=== PATIENT | female | born 1950 | race Caucasian/White ===

== ENCOUNTER 2022-11-17 09:45 | Emergency (ER) | payer MEDICARE, SELFPAY ==
[2022-11-17] VITALS (16 sets, daily range): BP systolic 110–148; BP diastolic 78–98; PULSE 74–95; RESP 13–21; TEMP 36.7; O2SAT 88–96; BMI 14.1
[2022-11-17 09:51] LABS: Glucometer 161 mg/dL (74-106)
--- NOTE | 2022-11-17 10:10 | ECG_ITS ---
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
--- NOTE | 2022-11-17 10:10 | XR_ITS ---
The [address] [address] Patient Name: DANY DE JESUS MRN: [id number] date: 1950 Sex: F Assigned Patient Location: ER Current Patient Location: ED.MAIN Accession/Order Number: [id number] Exam Date: 11/17/2022 10:40 Report Date: 11/17/2022 11:24 At the request of: KAREEM GOMEZ Procedure: XR chest 2V EXAM: XR chest 2V HISTORY: HYPOXIA COMPARISON: None. TECHNIQUE: PA and lateral views of the chest. FINDINGS: The cardiomediastinal silhouette is normal. Hyperlucent lungs and flattened diaphragm. Hiatal hernia. There is no pneumothorax. No pleural effusion is noted. The osseous structures are intact. XR/XR chest 2V IMPRESSION: Suggestion of COPD. Hiatal hernia. Electronically authenticated by: RAUL GREER Date: 11/17/2022 11:24
--- NOTE | 2022-11-17 10:25 | ED_ITS ---
HPI - Weakness General Chief complaint: Weakness Stated complaint: GENERAL WEAKNESS Time Seen by Provider: 11/17/22 09:49 Source: family and other Source comment: ems Mode of arrival: ambulance History of Present Illness HPI Narrative: 72-year-old female presents for weakness. She feels much better now. When paramedics picked her up they found her blood sugar to be fifty-eight. She was given IV insulin and feels much better now. She has not eaten today but she did eat yesterday. She is not a diabetic. No fever or vomiting and she feels essentially back to normal now. Related Data Allergies Allergy/AdvReac Type Severity Reaction Status Date / Time No Known Drug Allergies Allergy Verified 11/17/22 09:47 Review of Systems ROS Narrative A ten point review of systems is negative except as noted above. PFSH PFSH Social History Smoking status: Current every day smoker Exam Narrative Exam Narrative: Nurses note and vital signs reviewed and patient is not hypoxic. General: The patient appears well and in no apparent distress. Patient is resting comfortably on cart. Skin: Warm, dry, no pallor noted. There is no rash noted. Head: Normocephalic, atraumatic Eye: Normal conjunctiva, no drainage Ears, Nose, Mouth, and Throat: oral mucosa is moist. Nares patent. Cardiovascular: Regular Rate and Rhythm Respiratory: bilateral rhonchi present Back: non-tender. GI: nontender Musculoskeletal: The patient has no evidence of calf tenderness, no pitting edema, symmetrical pulses noted bilaterally Neurological: A&O, normal speech Psychiatric: Cooperative Constitutional Vital Signs, click to edit/add: Last Vital Signs Temp 98.0 F 11/17/22 09:47 Pulse 78 11/17/22 09:47 Resp 20 11/17/22 09:47 BP 148/98 H 11/17/22 09:47 Pulse Ox 88 L 11/17/22 10:19 O2 Del Method Room Air 11/17/22 10:19 O2 Flow Rate 2 11/17/22 10:19 Course Vital Signs Vital signs: Vital Signs Temperature 98.0 F 11/17/22 09:47 Pulse Rate 78 11/17/22 09:47 Respiratory Rate 20 11/17/22 09:47 Blood Pressure 148/98 H 11/17/22 09:47 Pulse Oximetry 91 L 11/17/22 09:47 Oxygen Delivery Method Room Air 11/17/22 09:47 Temperature 98.0 F 11/17/22 09:47 Pulse Rate 78 11/17/22 09:47 Respiratory Rate 20 11/17/22 09:47 Blood Pressure 148/98 H 11/17/22 09:47 Pulse Oximetry 88 L 11/17/22 10:19 Oxygen Delivery Method Room Air 11/17/22 10:19 Oxygen Delivery Flow Rate 2 11/17/22 10:19 MDM - Weakness MDM Narrative Medical decision making narrative: blood sugar on her chemistries was thirty-one. This was drawn by the paramedics when they placed her IV at her residence and subsequently she received IV gluco se and she ate a meal here. Blood sugar has normalized and she feels much better and she is able to be discharged home. Treatment diagnosis and follow-up were discussed with the patient. at the time of discharge she is asymptomatic. Differential Diagnosis Differential diagnosis: Likely hypoglycemia Lab Data Attestation: I reviewed the patient's lab results. Labs: Lab Results 11/17/22 11/17/22 Range/Units 09:50 09:55 WBC 8.6 (4.0-11.0) 10^3/uL RBC 4.74 (4.20-5.40) 10^6/uL Hgb 15.2 (12.0-16.0) g/dL Hct 48.8 H (36.0-48.0) % MCV 103.0 H (81.0-99.0) fL MCH 32.1 (26.7-34.0) pg MCHC 31.1 (29.9-35.2) g/dL RDW 14.0 (11.0-15.0) % Plt Count 406 (150-450) 10^3/uL MPV 9.6 (9.5-13.5) fL Neut % (Auto) 68.9 (43.0-75.0) % Lymph % (Auto) 22.9 (20.5-60.0) % Snyder % (Auto) 6.7 (1.7-12.0) % Eos % (Auto) 0.5 L (0.9-7.0) % Baso % (Auto) 0.8 (0.2-2.0) % Neut # (Auto) 5.9 (1.4-6.5) 10^3/uL Lymph # (Auto) 2.0 (1.2-3.8) 10^3/uL Snyder # (Auto) 0.6 (0.3-0.8) 10^3/uL Eos # (Auto) 0.0 (0.0-0.7) 10^3/uL Baso # (Auto) 0.1 (0.0-0.1) 10^3/uL Abs Immat Gran (auto) 0.02 (0.00-0.03) 10^3/uL Imm/Tot Granulo (auto) 0.2 (0.0-0.5) % Sodium 138 (136-145) mmol/L Potassium 3.8 (3.5-5.1) mmol/L Chloride 101 (98-107) mmol/L Carbon Dioxide 28.6 (21.0-32.0) mmol/L Anion Gap 12.2 BUN 20.0 H (7.0-18.0) mg/dL Creatinine 1.16 H (0.55-1.02) mg/dL Est GFR ( Amer) 55 L (>=60) Est GFR (Non-Af Amer) 46 L (>=60) BUN/Creatinine Ratio 17.2 Glucose 31 L* (74-106) mg/dL Calcium 8.6 (8.5-10.1) mg/dL Total Bilirubin 0.1 L (0.2-1.0) mg/dL AST 19 (15-37) U/L ALT 14 (14-59) U/L Alkaline Phosphatase 118 H (46-116) U/L Total Protein 8.3 H (6.4-8.2) g/dL Albumin 3.7 (3.4-5.0) g/dL Globulin 4.6 g/dL Albumin/Globulin Ratio 0.8 POC Glucose 161 H (74-106) mg/dL Discharge Plan Discharge Chief Complaint: Weakness Clinical Impression: Hypoglycemia Patient Disposition: Home, Self-Care Time of Disposition Decision: 11:22 Condition: Good Mode of Transportation: Private Vehicle Instructions: Non-diabetic Hypoglycemia (ED) Stand Alone Forms: Portal Instructions Referrals: Elieser Acharya MD [Primary Care Provider] - 1 week
[2022-11-17 10:38] LABS: Basophils Absolute Auto 0.1 10^3/uL (0.0-0.1); Basophils Percent Auto 0.8 % (0.2-2.0); Eosinophils Percent Auto 0.5 % (0.9-7.0); Hematocrit 48.8 % (36.0-48.0); Hemoglobin 15.2 g/dL (12.0-16.0); Immature Granulocytes Abs Auto 0.02 10^3/uL (0.00-0.03); Immature Granulocytes Pct Auto 0.2 % (0.0-0.5); Lymphocytes Percent Auto 22.9 % (20.5-60.0); Mean Corpuscular HGB Conc 31.1 g/dL (29.9-35.2); Mean Corpuscular Hemoglobin 32.1 pg (26.7-34.0); Mean Platelet Volume 9.6 fL (9.5-13.5); Monocytes Absolute Auto 0.6 10^3/uL (0.3-0.8); Monocytes Percent Auto 6.7 % (1.7-12.0); Neutrophils Absolute Auto 5.9 10^3/uL (1.4-6.5); Neutrophils Percent Auto 68.9 % (43.0-75.0); Platelet Count 406 10^3/uL (150-450); Red Blood Count 4.74 10^6/uL (4.20-5.40); White Blood Count 8.6 10^3/uL (4.0-11.0)
[2022-11-17 10:41] LABS: Alanine Aminotransferase 14 U/L (14-59); Albumin Globulin Ratio 0.8; Albumin Level 3.7 g/dL (3.4-5.0); Alkaline Phosphatase 118 U/L (46-116); Anion Gap 12.2; Aspartate Amino Transferase 19 U/L (15-37); BUN Creatinine Ratio 17.2; Bilirubin Total 0.1 mg/dL (0.2-1.0); Calcium 8.6 mg/dL (8.5-10.1); Carbon Dioxide 28.6 mmol/L (21.0-32.0); Chloride 101 mmol/L (98-107); Estimated GFR (African America 55 (>=60); Estimated GFR (Non-African Ame 46 (>=60); Globulin 4.6 g/dL; Potassium 3.8 mmol/L (3.5-5.1); Sodium 138 mmol/L (136-145); Total Protein 8.3 g/dL (6.4-8.2)
[2022-11-17 10:51] LABS: Glucose 31 mg/dL (74-106)
== END 2022-11-17 12:05 | disposition home or self-care (01) ==
PROVIDERS: Emergency Provider Emergency Medicine; PCP Family Medicine
DX: E16.2 Hypoglycemia, unspecified (principal); F17.210 Nicotine dependence, cigarettes, uncomplicated
CPT/HCPCS: 36415; 71046; 80053; 85025; 93005; 99285

== ENCOUNTER 2022-11-23 10:12 | Outpatient (OUT) | payer MEDICARE, SELFPAY ==
[2022-11-23 10:24] LABS: Basophils Percent Auto 0.5 % (0.2-2.0); Eosinophils Absolute Auto 0.1 10^3/uL (0.0-0.7); Eosinophils Percent Auto 1.5 % (0.9-7.0); Hematocrit 44.4 % (36.0-48.0); Hemoglobin 13.8 g/dL (12.0-16.0); Immature Granulocytes Abs Auto 0.02 10^3/uL (0.00-0.03); Immature Granulocytes Pct Auto 0.3 % (0.0-0.5); Lymphocytes Percent Auto 27.2 % (20.5-60.0); Mean Corpuscular HGB Conc 31.1 g/dL (29.9-35.2); Mean Corpuscular Hemoglobin 32.3 pg (26.7-34.0); Mean Platelet Volume 8.8 fL (9.5-13.5); Monocytes Absolute Auto 0.6 10^3/uL (0.3-0.8); Monocytes Percent Auto 8.3 % (1.7-12.0); Neutrophils Absolute Auto 4.6 10^3/uL (1.4-6.5); Neutrophils Percent Auto 62.2 % (43.0-75.0); Platelet Count 287 10^3/uL (150-450); Red Blood Count 4.27 10^6/uL (4.20-5.40); Red Cell Distribution Width 14.2 % (11.0-15.0); White Blood Count 7.4 10^3/uL (4.0-11.0)
[2022-11-23 10:54] LABS: Alanine Aminotransferase 11 U/L (14-59); Albumin Globulin Ratio 0.8; Alkaline Phosphatase 96 U/L (46-116); Anion Gap 9.9; Aspartate Amino Transferase 16 U/L (15-37); BUN Creatinine Ratio 16.5; Bilirubin Total 0.2 mg/dL (0.2-1.0); Calcium 8.6 mg/dL (8.5-10.1); Carbon Dioxide 31.5 mmol/L (21.0-32.0); Chloride 103 mmol/L (98-107); Chol HDL Ratio 2.8; Cholesterol 171 mg/dL (<=200); Estimated GFR (African America >60 (>=60); Estimated GFR (Non-African Ame >60 (>=60); Glucose 89 mg/dL (74-106); HDL Cholesterol 61 mg/dL (40-60); Potassium 5.4 mmol/L (3.5-5.1); Sodium 139 mmol/L (136-145); Triglycerides 171 mg/dL (<=150); VLDL CHOLESTEROL 34.2 mg/dL
== END 2022-11-23 10:13 | disposition home or self-care (01) ==
LOC: LAB 10:12
PROVIDERS: PCP Family Medicine; Visit Provider Nurse Practitioner Acute Care
DX: E78.2 Mixed hyperlipidemia (principal); I50.22 Chronic systolic (congestive) heart failure
CPT/HCPCS: 36415; 80053; 80061; 85025

== ENCOUNTER 2022-11-26 11:58 | Emergency (ER) | payer MEDICARE, SELFPAY ==
[2022-11-26] VITALS (8 sets, daily range): BP systolic 125–151; BP diastolic 73–88; PULSE 76–92; RESP 16–26; TEMP 36.6; O2SAT 90–92; BMI 14.1
[2022-11-26 12:15] LABS: Glucometer 74 mg/dL (74-106)
[2022-11-26 12:53] LABS: Basophils Percent Auto 0.5 % (0.2-2.0); Eosinophils Absolute Auto 0.1 10^3/uL (0.0-0.7); Eosinophils Percent Auto 1.1 % (0.9-7.0); Hematocrit 45.9 % (36.0-48.0); Hemoglobin 13.9 g/dL (12.0-16.0); Immature Granulocytes Abs Auto 0.02 10^3/uL (0.00-0.03); Immature Granulocytes Pct Auto 0.3 % (0.0-0.5); Lymphocytes Absolute Auto 1.4 10^3/uL (1.2-3.8); Lymphocytes Percent Auto 18.7 % (20.5-60.0); Mean Corpuscular HGB Conc 30.3 g/dL (29.9-35.2); Mean Platelet Volume 8.9 fL (9.5-13.5); Monocytes Absolute Auto 0.7 10^3/uL (0.3-0.8); Monocytes Percent Auto 9.4 % (1.7-12.0); Neutrophils Absolute Auto 5.1 10^3/uL (1.4-6.5); Platelet Count 298 10^3/uL (150-450); Red Blood Count 4.34 10^6/uL (4.20-5.40); Red Cell Distribution Width 14.4 % (11.0-15.0); White Blood Count 7.3 10^3/uL (4.0-11.0)
[2022-11-26 12:57] LABS: Mean Corpuscular Volume 105.8 fL (81.0-99.0)
[2022-11-26 13:09] LABS: Alanine Aminotransferase 11 U/L (14-59); Albumin Globulin Ratio 0.8; Albumin Level 3.3 g/dL (3.4-5.0); Alkaline Phosphatase 100 U/L (46-116); Anion Gap 8.4; Aspartate Amino Transferase 19 U/L (15-37); BUN Creatinine Ratio 15.6; Bilirubin Total 0.1 mg/dL (0.2-1.0); Calcium 8.4 mg/dL (8.5-10.1); Carbon Dioxide 31.1 mmol/L (21.0-32.0); Chloride 97 mmol/L (98-107); Estimated GFR (African America >60 (>=60); Estimated GFR (Non-African Ame 57 (>=60); Globulin 4.3 g/dL; Potassium 4.5 mmol/L (3.5-5.1); Sodium 132 mmol/L (136-145); Total Protein 7.6 g/dL (6.4-8.2)
[2022-11-26 13:11] LABS: Glucose 47 mg/dL (74-106)
--- NOTE | 2022-11-26 13:18 | CT_ITS ---
The [address] [address] Patient Name: DANY DE JESUS MRN: [id number] date: 1950 Sex: F Assigned Patient Location: ER Current Patient Location: ER Accession/Order Number: [id number] Exam Date: 11/26/2022 13:45 Report Date: 11/26/2022 15:03 At the request of: MAGDI ACUNA Procedure: CT abdomen pelvis wo con EXAM: CT abdomen pelvis wo con HISTORY: Hypoglycemia. COMPARISON: 09/28/2016. TECHNIQUE: Unenhanced helical acquisition obtained through the abdomen and the pelvis. Dose reduction techniques were achieved by using automated exposure control and/or adjustment of mA and/or kV according to patient size and/or use of iterative reconstruction technique. FINDINGS: Cardiomegaly. Moderate coronary arterial calcifications. Fairly marked gastric distention with large hiatal hernia filled with fluid and debris. Associated compressive atelectasis noted involving the bilateral lower lobes, right greater than left. The pleural spaces are clear. Prior cholecystectomy. Biliary ductal dilatation with the common bile duct maximally measuring 1.9 cm in diameter. Allowing for the lack of intravenous contrast, the liver, spleen, pancreas, and the adrenal glands are unremarkable. Prominent bilateral extrarenal pelves. No renal or ureteral calculi are identified. Severe diffuse atherosclerotic disease. Infrarenal abdominal aortic aneurysm measuring approximately 3 cm AP diameter, previously measuring 2.6 cm. No enlarged lymph nodes identified within the abdomen or the pelvis. Diverticulosis without radiographic evidence of diverticulitis. Gas and fluid filled mildly distended small bowel. Fairly extensive stool present within the colon. Prior appendectomy and prior hysterectomy. Diffuse demineralization. CT/CT abdomen pelvis wo con IMPRESSION: 1. There is marked gastric distention with fluid and debris within the gastric lumen. Large hiatal hernia resulting in compressive atelectasis at the lung bases. Possibility of gastroparesis should be considered. Mechanical outlet obstruction is considered less likely given prominent mildly distended small bowel loops throughout the abdomen. 2. Fairly extensive stool burden within the colon. Diverticulosis without radiographic evidence diverticulitis. 3. Cardiomegaly. Moderate coronary arterial calcifications. 4. Prior cholecystectomy. Extrahepatic biliary ductal dilatation with the common bile duct measuring 1.9 cm in diameter. Recommend correlation with LFTs. 5. A 3 cm infrarenal abdominal aortic aneurysm, mildly increased in size. Electronically authenticated by: MANPREET CRAIG Date: 11/26/2022 15:03
[2022-11-26] MEDS: DEXTROSE 50 %-WATER 25 GM/50 ML SYRINGE IV (13:23)
[2022-11-26 14:11] LABS: Glucometer 78 mg/dL (74-106)
[2022-11-26] MEDS: DEXTROSE 10 % IN WATER 1,000 ML 150 ML IV (14:57)
[2022-11-26 17:10] LABS: Glucometer 89 mg/dL (74-106)
[2022-11-26] MEDS: HYDROCODONE/ACET 10-325 MG TABLET 1 TAB PO (18:14)
--- NOTE | 2022-11-26 18:23 | ED_ITS ---
HPI - General Adult General Chief complaint: Recheck/Abnormal Lab/Rx Stated complaint: LOW SUGAR Time Seen by Provider: 11/26/22 12:05 Source: patient Mode of arrival: Wheelchair Limitations: no limitations History of Present Illness HPI narrative: The patient have no history of diabetes coming to the ER with hypoglycemia after this morning she mentioned that she was feeling tremors and felt shaky and her measured her blood sugar and it was found to be 25 the patient also had another blood sugar , the patient mentioned that she had similar presentation almost 9 days ago to the ER when she was supposed to follow-up with her primary care doctor The patient denies any abdominal pain nausea vomiting or any other concerns Related Data Home Medications Medication Instructions Recorded Confirmed albuterol sulfate 90 mcg/actuation 2 puff inhalation Q4H PRN 11/26/22 11/26/22 aerosol inhaler bronchospasm atorvastatin 40 mg tablet 40 mg PO DAILY 11/26/22 11/26/22 cyclobenzaprine 5 mg tablet 5 mg PO Q8H PRN muscle spasm 11/26/22 11/26/22 furosemide 20 mg tablet 20 mg PO .daily mon, wed, mon11/26/22 11/26/22 furosemide 40 mg tablet 40 mg PO .COMPLEX 11/26/22 11/26/22 hydrocodone 10 mg-acetaminophen 1 tab PO Q4H PRN pain 11/26/22 11/26/22 325 mg tablet omeprazole 40 mg capsule,delayed 40 mg PO BID 11/26/22 11/26/22 release potassium chloride 20 mEq 20 meq PO .q am 11/26/22 11/26/22 tablet,extended release(part/cryst) sacubitril 24 mg-valsartan 26 mg 1 tab PO BID 11/26/22 11/26/22 tablet (Entresto) Allergies Allergy/AdvReac Type Severity Reaction Status Date / Time No Known Drug Allergies Allergy Verified 11/17/22 09:47 Review of Systems ROS Status of ROS 10 or more systems reviewed and unremarkable except as noted in history and below [facility] Social History Smoking status: Current every day smoker Exam Narrative Exam Narrative: Nurses notes and vital signs reviewed and patient is not hypoxic. General: Well-appearing and in no apparent distress. Skin: Warm, dry, no pallor noted. No rash. Head: Normocephalic, atraumatic. Neck: Supple, non-tender. Eye: Pupils are equal, round and EOMI. No scleral icterus. Ears, Nose, Mouth, and Throat: TM are clear, no nasal mucosal hypertrophy. Oral mucosa is moist, no posterior oropharynx erythema, uvula is mid-line Cardiovascular: Regular Rate and Rhythm without murmur, gallop or rub. Respiratory: No accessory muscle use or respiratory distress. Lungs are clear to auscultation, no wheezing, rales or rhonchi Chest Wall: no tenderness Back: No midline thoracic or lumbar vertebral tenderness. No CVA tenderness Musculoskeletal: normal ROM, no calf or popliteal tenderness, no lower extremity edema/swelling GI: Abdomen is soft, non-distended. Normal bowel sounds. No masses appreciated. No tenderness to palpation. No rebound, guarding, or rigidity noted. Neurological: A&O x4. No cranial nerve dysfunction observed. No truncal ataxia. Moves all extremities. Sensation intact. Psychiatric: Cooperative and interactive. Normal mood and affect. Constitutional Vital Signs, click to edit/add: Last Vital Signs Temp 97.8 F 11/26/22 12:05 Pulse 89 11/26/22 17:23 Resp 18 11/26/22 17:23 BP 125/74 11/26/22 17:23 Pulse Ox 90 L 11/26/22 17:23 O2 Del Method Room Air 11/26/22 17:23 Course Vital Signs Vital signs: Vital Signs Temperature 97.8 F 11/26/22 12:05 Pulse Rate 76 11/26/22 12:05 Respiratory Rate 24 11/26/22 12:05 Blood Pressure 151/73 H 11/26/22 12:05 Temperature 97.8 F 11/26/22 12:05 Pulse Rate 89 11/26/22 17:23 Respiratory Rate 18 11/26/22 17:23 Blood Pressure 125/74 11/26/22 17:23 Pulse Oximetry 90 L 11/26/22 17:23 Oxygen Delivery Method Room Air 11/26/22 17:23 Medical Decision Making MDM Narrative Medical decision making narrative: The patient does have a history of chronic back pain but no history of diabetes and her hypoglycemia that was recurring it was not explained The patient blood sugar dropped to 25 at home she had some juice and when she came to us it was initially 70 but when the blood work-up was taken it was 45 and she was provided with almost multiple p.o. juices as well as 50 % dextrose and yet I only reached 70s I did get a CAT scan of the abdomen of the patient that was not showing any significant pathology but it was without contrast and possible obstruction according to the result mentioned above is not ruled out CBC and chemistry showed no acute significant pathology Initially was the plan to admitted the patient to our facility but we do not have any specialty including endocrinology that would help diagnosing the patient hypoglycemia especially that she is not diabetic The patient initially was reluctant that she did not want to go to [facility] but I called Jerry as well as Miko Quijano and both of them does not have any nike athlete The patient case was discussed with the [facility] and Dr. Olsen agree to accept the patient the patient was on 150 cc of 10% dextrose right now as continuous infusion Lab Data Labs: Lab Results 11/26/22 11/26/22 11/26/22 Range/Units 12:04 12:37 14:10 WBC 7.3 (4.0-11.0) 10^3/uL RBC 4.34 (4.20-5.40) 10^6/uL Hgb 13.9 (12.0-16.0) g/dL Hct 45.9 (36.0-48.0) % MCV 105.8 H (81.0-99.0) fL MCH 32.0 (26.7-34.0) pg MCHC 30.3 (29.9-35.2) g/dL RDW 14.4 (11.0-15.0) % Plt Count 298 (150-450) 10^3/uL MPV 8.9 L (9.5-13.5) fL Neut % (Auto) 70.0 (43.0-75.0) % Lymph % (Auto) 18.7 L (20.5-60.0) % Laurens % (Auto) 9.4 (1.7-12.0) % Eos % (Auto) 1.1 (0.9-7.0) % Baso % (Auto) 0.5 (0.2-2.0) % Neut # (Auto) 5.1 (1.4-6.5) 10^3/uL Lymph # (Auto) 1.4 (1.2-3.8) 10^3/uL [place] # (Auto) 0.7 (0.3-0.8) 10^3/uL Eos # (Auto) 0.1 (0.0-0.7) 10^3/uL Baso # (Auto) 0.0 (0.0-0.1) 10^3/uL Abs Immat Gran (auto) 0.02 (0.00-0.03) 10^3/uL Imm/Tot Granulo (auto) 0.3 (0.0-0.5) % Sodium 132 L (136-145) mmol/L Potassium 4.5 (3.5-5.1) mmol/L Chloride 97 L (98-107) mmol/L Carbon Dioxide 31.1 (21.0-32.0) mmol/L Anion Gap 8.4 BUN 15.0 (7.0-18.0) mg/dL Creatinine 0.96 (0.55-1.02) mg/dL Est GFR ( Amer) >60 (>=60) Est GFR (Non-Af Amer) 57 L (>=60) BUN/Creatinine Ratio 15.6 Glucose 47 L* (74-106) mg/dL Calcium 8.4 L (8.5-10.1) mg/dL Total Bilirubin 0.1 L (0.2-1.0) mg/dL AST 19 (15-37) U/L ALT 11 L (14-59) U/L Alkaline Phosphatase 100 (46-116) U/L Total Protein 7.6 (6.4-8.2) g/dL Albumin 3.3 L (3.4-5.0) g/dL Globulin 4.3 g/dL Albumin/Globulin Ratio 0.8 POC Glucose 74 78 (74-106) mg/dL 11/26/22 Range/Units 17:07 WBC (4.0-11.0) 10^3/uL RBC (4.20-5.40) 10^6/uL Hgb (12.0-16.0) g/dL Hct (36.0-48.0) % MCV (81.0-99.0) fL MCH (26.7-34.0) pg MCHC (29.9-35.2) g/dL RDW (11.0-15.0) % Plt Count (150-450) 10^3/uL MPV (9.5-13.5) fL Neut % (Auto) (43.0-75.0) % Lymph % (Auto) (20.5-60.0) % Laurens % (Auto) (1.7-12.0) % Eos % (Auto) (0.9-7.0) % Baso % (Auto) (0.2-2.0) % Neut # (Auto) (1.4-6.5) 10^3/uL Lymph # (Auto) (1.2-3.8) 10^3/uL Laurens # (Auto) (0.3-0.8) 10^3/uL Eos # (Auto) (0.0-0.7) 10^3/uL Baso # (Auto) (0.0-0.1) 10^3/uL Abs Immat Gran (auto) (0.00-0.03) 10^3/uL Imm/Tot Granulo (auto) (0.0-0.5) % Sodium (136-145) mmol/L Potassium (3.5-5.1) mmol/L Chloride (98-107) mmol/L Carbon Dioxide (21.0-32.0) mmol/L Anion Gap BUN (7.0-18.0) mg/dL Creatinine (0.55-1.02) mg/dL Est GFR ( Amer) (>=60) Est GFR (Non-Af Amer) (>=60) BUN/Creatinine Ratio Glucose (74-106) mg/dL Calcium (8.5-10.1) mg/dL Total Bilirubin (0.2-1.0) mg/dL AST (15-37) U/L ALT (14-59) U/L Alkaline Phosphatase (46-116) U/L Total Protein (6.4-8.2) g/dL Albumin (3.4-5.0) g/dL Globulin g/dL Albumin/Globulin Ratio POC Glucose 89 (74-106) mg/dL Discharge Plan Discharge Chief Complaint: Recheck/Abnormal Lab/Rx Clinical Impression: Hypoglycemia without diagnosis of diabetes mellitus Patient Disposition: [facility] Time of Disposition Decision: 18:28 Discharge Location: [facility] Condition: Good Mode of Transportation: EMS
[2022-11-26 18:56] LABS: Glucometer 112 mg/dL (74-106)
== END 2022-11-26 19:15 | disposition short-term general hospital (02) ==
PROVIDERS: Emergency Provider Emergency Medicine; PCP Family Medicine
DX: E16.2 Hypoglycemia, unspecified (principal); Z79.899 Other long term (current) drug therapy; F17.210 Nicotine dependence, cigarettes, uncomplicated
CPT/HCPCS: 36415; 36416; 74176; 80053; 82948; 85025; 99285

== ENCOUNTER 2022-12-09 03:18 | Observation (INO) | payer MEDICARE, SELFPAY ==
[2022-12-09] VITALS (46 sets, daily range): BP systolic 95–141; BP diastolic 51–78; PULSE 64–101; RESP 12–34; TEMP 36.7–36.8; O2SAT 90–100; BMI 15.1
[2022-12-09 03:28] LABS: Glucometer 31 mg/dL (74-106)
[2022-12-09 03:28] LABS: Glucometer 31 mg/dL (74-106)
--- NOTE | 2022-12-09 03:30 | XR_ITS ---
The [address] [address] Patient Name: DANY DE JESUS MRN: [id number] date: 1950 Sex: F Assigned Patient Location: ER Current Patient Location: ER Accession/Order Number: [id number] Exam Date: 12/09/2022 03:38 Report Date: 12/09/2022 03:55 At the request of: KAL ANDERSON Procedure: XR chest 1V EXAM: XR chest 1V HISTORY: weakness COMPARISON: Chest radiographs dated 11/17/2022. TECHNIQUE: One view of the chest was obtained. FINDINGS: The cardiac silhouette is stable in size. There is a very large hiatal hernia containing air and fluid. Aortic atherosclerotic disease is seen. There is left basilar atelectasis. There is no significant pneumothorax or right pleural effusion. There is a small left pleural effusion. No acute osseous abnormality is seen. XR/XR chest 1V IMPRESSION: 1. Very large hiatal hernia with left basilar atelectasis and a possible small left pleural effusion. Electronically authenticated by: Ya HENRY Date: 12/09/2022 03:55
--- NOTE | 2022-12-09 03:30 | ECG_ITS ---
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
--- NOTE | 2022-12-09 03:31 | ED_ITS ---
HPI - Weakness General Chief complaint: Weakness Stated complaint: SOB Time Seen by Provider: 12/09/22 03:27 Source: patient Mode of arrival: ambulance History of Present Illness HPI Narrative: patient with recent visits to the hospital for hypoglycemia of unknown etiology. Was transferred to [facility]. Patient states nothing was done. Brought here tonight by [employer] for weakness and feeling dizzy. POC BS 30. No nausea or vomiting or pain. Denies taking insulin and she is not diabetic MD Complaint: Reports generalized weakness Related Data Home Medications Medication Instructions Recorded Confirmed albuterol sulfate 90 mcg/actuation 2 puff inhalation Q4H PRN 11/26/22 12/09/22 aerosol inhaler bronchospasm atorvastatin 40 mg tablet 40 mg PO DAILY 11/26/22 12/09/22 cyclobenzaprine 5 mg tablet 5 mg PO Q8H PRN muscle spasm 11/26/22 12/09/22 furosemide 20 mg tablet 20 mg PO .daily mon, wed, fri 11/26/22 11/26/22 furosemide 40 mg tablet 40 mg PO .COMPLEX 11/26/22 12/09/22 hydrocodone 10 mg-acetaminophen 1 tab PO Q4H PRN pain 11/26/22 12/09/22 325 mg tablet omeprazole 40 mg capsule,delayed 40 mg PO BID 11/26/22 12/09/22 release potassium chloride 20 mEq 20 meq PO .q am 11/26/22 12/09/22 tablet,extended release(part/cryst) sacubitril 24 mg-valsartan 26 mg 1 tab PO BID 11/26/22 11/26/22 tablet (Entresto) blood sugar diagnostic (Accu-Chek 12/09/22 12/09/22 Guide test strips) blood-glucose meter (Accu-Chek 12/09/22 12/09/22 Guide Glucose Meter) hydrocodone 5 mg-acetaminophen 325 tab 12/09/22 mg tablet Allergies Allergy/AdvReac Type Severity Reaction Status Date / Time No Known Drug Allergies Allergy Verified 12/09/22 03:22 Review of Systems ROS Status of ROS 10 or more systems reviewed and unremarkable except as noted in history and below PFSH PFSH Social History Smoking status: Current every day smoker Exam Constitutional Vital Signs, click to edit/add: Last Vital Signs Temp 98.0 F 12/09/22 03:19 Pulse 69 12/09/22 06:20 Resp 15 12/09/22 06:20 BP 99/53 12/09/22 06:00 Pulse Ox 90 L 12/09/22 06:20 Common normals: no apparent distress, oriented x3 and alert Eye Common normals: EOMs intact bilaterally and conjunctivae normal Chest Common normals: inspection of chest normal Respiratory Common normals: normal respiratory effort, no retractions, no use of accessory muscles and clear to auscultation bilaterally Cardio Common normals: regular rate, regular rhythm, S1 normal heart sound and S2 normal heart sound GI Common normals: Normal to inspection, nondistended, normoactive bowel sounds present, soft to palpation and non-tender Extremity Common normals: normal to inspection and full ROM Neuro Common normals: oriented x3, CN's II-XII intact bilaterally, moves all extremities, no focal motor deficits and no sensory deficits noted Psych Appearance: grossly normal Course Vital Signs Vital signs: Vital Signs Temperature 98.0 F 12/09/22 03:19 Pulse Rate 67 12/09/22 03:19 Respiratory Rate 16 12/09/22 03:19 Blood Pressure 141/78 12/09/22 03:19 Pulse Oximetry 98 12/09/22 03:19 Temperature 98.0 F 12/09/22 03:19 Pulse Rate 69 12/09/22 06:20 Respiratory Rate 15 12/09/22 06:20 Blood Pressure 99/53 12/09/22 06:00 Pulse Oximetry 90 L 12/09/22 06:20 MDM - Weakness MDM Narrative Medical decision making narrative: patient presents with hypoglycemia. Patient is not diabetic and does not take insulin. POC BS on arrival 31. Lab returned with RBS 23. Patient treated with D50 and food and her BS increased. BS rechecked again and it went down again. Discussed with [facility] and patient accepted in transfer. her UA is nitrite positive. Given dose of keflex for possible UTI. Care transferred to Dr Singh pending transfer Lab Data Labs: Lab Results 12/09/22 12/09/22 12/09/22 Range/Units 03:20 03:24 03:26 WBC 9.5 (4.0-11.0) 10^3/uL RBC 4.02 L (4.20-5.40) 10^6/uL Hgb 13.0 (12.0-16.0) g/dL Hct 41.9 (36.0-48.0) % MCV 104.2 H (81.0-99.0) fL MCH 32.3 (26.7-34.0) pg MCHC 31.0 (29.9-35.2) g/dL RDW 14.8 (11.0-15.0) % Plt Count 436 (150-450) 10^3/uL MPV 8.6 L (9.5-13.5) fL Neut % (Auto) 67.4 (43.0-75.0) % Lymph % (Auto) 19.7 L (20.5-60.0) % [place] % (Auto) 11.9 (1.7-12.0) % Eos % (Auto) 0.3 L (0.9-7.0) % Baso % (Auto) 0.4 (0.2-2.0) % Neut # (Auto) 6.4 (1.4-6.5) 10^3/uL Lymph # (Auto) 1.9 (1.2-3.8) 10^3/uL [place] # (Auto) 1.1 H (0.3-0.8) 10^3/uL Eos # (Auto) 0.0 (0.0-0.7) 10^3/uL Baso # (Auto) 0.0 (0.0-0.1) 10^3/uL Abs Immat Gran (auto) 0.03 (0.00-0.03) 10^3/uL Imm/Tot Granulo (auto) 0.3 (0.0-0.5) % Sodium 130 L (136-145) mmol/L Potassium 4.3 (3.5-5.1) mmol/L Chloride 96 L (98-107) mmol/L Carbon Dioxide 29.3 (21.0-32.0) mmol/L Anion Gap 9.0 BUN 23.0 H (7.0-18.0) mg/dL Creatinine 1.30 H (0.55-1.02) mg/dL Est GFR ( Amer) 48 L (>=60) Est GFR (Non-Af Amer) 40 L (>=60) BUN/Creatinine Ratio 17.7 Glucose 23 L* (74-106) mg/dL Calcium 8.2 L (8.5-10.1) mg/dL Total Bilirubin 0.2 (0.2-1.0) mg/dL AST 16 (15-37) U/L ALT 9 L (14-59) U/L Alkaline Phosphatase 81 (46-116) U/L Troponin I High Sens 19.9 (4.0-51.3) pg/mL Total Protein 6.8 (6.4-8.2) g/dL Albumin 3.1 L (3.4-5.0) g/dL Globulin 3.7 g/dL Albumin/Globulin Ratio 0.8 Urine Color (YELLOW) Urine Clarity (CLEAR) Urine pH (5.0-9.0) Ur Specific [place] (1.005-1.025) Urine Protein (NEG/TRACE) mg/dL Urine Glucose (UA) (NEGATIVE) mg/dL Urine Ketones (NEGATIVE) mg/dL Urine Occult Blood (NEGATIVE) Urine Nitrite (NEGATIVE) Urine Bilirubin (NEGATIVE) Urine Urobilinogen (0.2-1.0) EU/dL Ur Leukocyte Esterase (NEGATIVE) Urine RBC (0-2) #/HPF Urine WBC (NONE SEEN) #/HPF Ur Squamous Epith Cells (NONE/RARE) #/LPF Urine Crystals (None Seen) #/HPF Urine Bacteria (NONE SEEN) #/HPF Urine Casts (NONE SEEN) #/LPF Urine Mucus (NONE SEEN) Ur Culture Indicated? POC Glucose 31 L* 31 L* (74-106) mg/dL 12/09/22 12/09/22 12/09/22 Range/Units 03:56 03:58 04:46 WBC (4.0-11.0) 10^3/uL RBC (4.20-5.40) 10^6/uL Hgb (12.0-16.0) g/dL Hct (36.0-48.0) % MCV (81.0-99.0) fL MCH (26.7-34.0) pg MCHC (29.9-35.2) g/dL RDW (11.0-15.0) % Plt Count (150-450) 10^3/uL MPV (9.5-13.5) fL Neut % (Auto) (43.0-75.0) % Lymph % (Auto) (20.5-60.0) % [place] % (Auto) (1.7-12.0) % Eos % (Auto) (0.9-7.0) % Baso % (Auto) (0.2-2.0) % Neut # (Auto) (1.4-6.5) 10^3/uL Lymph # (Auto) (1.2-3.8) 10^3/uL [place] # (Auto) (0.3-0.8) 10^3/uL Eos # (Auto) (0.0-0.7) 10^3/uL Baso # (Auto) (0.0-0.1) 10^3/uL Abs Immat Gran (auto) (0.00-0.03) 10^3/uL Imm/Tot Granulo (auto) (0.0-0.5) % Sodium (136-145) mmol/L Potassium (3.5-5.1) mmol/L Chloride (98-107) mmol/L Carbon Dioxide (21.0-32.0) mmol/L Anion Gap BUN (7.0-18.0) mg/dL Creatinine (0.55-1.02) mg/dL Est GFR ( Amer) (>=60) Est GFR (Non-Af Amer) (>=60) BUN/Creatinine Ratio Glucose (74-106) mg/dL Calcium (8.5-10.1) mg/dL Total Bilirubin (0.2-1.0) mg/dL AST (15-37) U/L ALT (14-59) U/L Alkaline Phosphatase (46-116) U/L Troponin I High Sens (4.0-51.3) pg/mL Total Protein (6.4-8.2) g/dL Albumin (3.4-5.0) g/dL Globulin g/dL Albumin/Globulin Ratio Urine Color (YELLOW) Urine Clarity (CLEAR) Urine pH (5.0-9.0) Ur Specific [place] (1.005-1.025) Urine Protein (NEG/TRACE) mg/dL Urine Glucose (UA) (NEGATIVE) mg/dL Urine Ketones (NEGATIVE) mg/dL Urine Occult Blood (NEGATIVE) Urine Nitrite (NEGATIVE) Urine Bilirubin (NEGATIVE) Urine Urobilinogen (0.2-1.0) EU/dL Ur Leukocyte Esterase (NEGATIVE) Urine RBC (0-2) #/HPF Urine WBC (NONE SEEN) #/HPF Ur Squamous Epith Cells (NONE/RARE) #/LPF Urine Crystals (None Seen) #/HPF Urine Bacteria (NONE SEEN) #/HPF Urine Casts (NONE SEEN) #/LPF Urine Mucus (NONE SEEN) Ur Culture Indicated? POC Glucose 166 H 158 H 73 L (74-106) mg/dL 12/09/22 12/09/22 12/09/22 Range/Units 05:00 05:51 05:53 WBC (4.0-11.0) 10^3/uL RBC (4.20-5.40) 10^6/uL Hgb (12.0-16.0) g/dL Hct (36.0-48.0) % MCV (81.0-99.0) fL MCH (26.7-34.0) pg MCHC (29.9-35.2) g/dL RDW (11.0-15.0) % Plt Count (150-450) 10^3/uL MPV (9.5-13.5) fL Neut % (Auto) (43.0-75.0) % Lymph % (Auto) (20.5-60.0) % [place] % (Auto) (1.7-12.0) % Eos % (Auto) (0.9-7.0) % Baso % (Auto) (0.2-2.0) % Neut # (Auto) (1.4-6.5) 10^3/uL Lymph # (Auto) (1.2-3.8) 10^3/uL [place] # (Auto) (0.3-0.8) 10^3/uL Eos # (Auto) (0.0-0.7) 10^3/uL Baso # (Auto) (0.0-0.1) 10^3/uL Abs Immat Gran (auto) (0.00-0.03) 10^3/uL Imm/Tot Granulo (auto) (0.0-0.5) % Sodium (136-145) mmol/L Potassium (3.5-5.1) mmol/L Chloride (98-107) mmol/L Carbon Dioxide (21.0-32.0) mmol/L Anion Gap BUN (7.0-18.0) mg/dL Creatinine (0.55-1.02) mg/dL Est GFR ( Amer) (>=60) Est GFR (Non-Af Amer) (>=60) BUN/Creatinine Ratio Glucose (74-106) mg/dL Calcium (8.5-10.1) mg/dL Total Bilirubin (0.2-1.0) mg/dL AST (15-37) U/L ALT (14-59) U/L Alkaline Phosphatase (46-116) U/L Troponin I High Sens (4.0-51.3) pg/mL Total Protein (6.4-8.2) g/dL Albumin (3.4-5.0) g/dL Globulin g/dL Albumin/Globulin Ratio Urine Color Lt. yellow (YELLOW) Urine Clarity Clear (CLEAR) Urine pH 5.5 (5.0-9.0) Ur Specific [place] <=1.005 A (1.005-1.025) Urine Protein Negative (NEG/TRACE) mg/dL Urine Glucose (UA) 100 A (NEGATIVE) mg/dL Urine Ketones Negative (NEGATIVE) mg/dL Urine Occult Blood Negative (NEGATIVE) Urine Nitrite Positive A (NEGATIVE) Urine Bilirubin Negative (NEGATIVE) Urine Urobilinogen 0.2 (0.2-1.0) EU/dL Ur Leukocyte Esterase Negative (NEGATIVE) Urine RBC 0-2 (0-2) #/HPF Urine WBC None seen (NONE SEEN) #/HPF Ur Squamous Epith Cells Few A (NONE/RARE) #/LPF Urine Crystals None seen (None Seen) #/HPF Urine Bacteria Large A (NONE SEEN) #/HPF Urine Casts None seen (NONE SEEN) #/LPF Urine Mucus None seen (NONE SEEN) Ur Culture Indicated? Yes POC Glucose 358 H 58 L (74-106) mg/dL 12/09/22 12/09/22 Range/Units 06:42 06:43 WBC (4.0-11.0) 10^3/uL RBC (4.20-5.40) 10^6/uL Hgb (12.0-16.0) g/dL Hct (36.0-48.0) % MCV (81.0-99.0) fL MCH (26.7-34.0) pg MCHC (29.9-35.2) g/dL RDW (11.0-15.0) % Plt Count (150-450) 10^3/uL MPV (9.5-13.5) fL Neut % (Auto) (43.0-75.0) % Lymph % (Auto) (20.5-60.0) % [place] % (Auto) (1.7-12.0) % Eos % (Auto) (0.9-7.0) % Baso % (Auto) (0.2-2.0) % Neut # (Auto) (1.4-6.5) 10^3/uL Lymph # (Auto) (1.2-3.8) 10^3/uL [place] # (Auto) (0.3-0.8) 10^3/uL Eos # (Auto) (0.0-0.7) 10^3/uL Baso # (Auto) (0.0-0.1) 10^3/uL Abs Immat Gran (auto) (0.00-0.03) 10^3/uL Imm/Tot Granulo (auto) (0.0-0.5) % Sodium (136-145) mmol/L Potassium (3.5-5.1) mmol/L Chloride (98-107) mmol/L Carbon Dioxide (21.0-32.0) mmol/L Anion Gap BUN (7.0-18.0) mg/dL Creatinine (0.55-1.02) mg/dL Est GFR ( Amer) (>=60) Est GFR (Non-Af Amer) (>=60) BUN/Creatinine Ratio Glucose (74-106) mg/dL Calcium (8.5-10.1) mg/dL Total Bilirubin (0.2-1.0) mg/dL AST (15-37) U/L ALT (14-59) U/L Alkaline Phosphatase (46-116) U/L Troponin I High Sens (4.0-51.3) pg/mL Total Protein (6.4-8.2) g/dL Albumin (3.4-5.0) g/dL Globulin g/dL Albumin/Globulin Ratio Urine Color (YELLOW) Urine Clarity (CLEAR) Urine pH (5.0-9.0) Ur Specific [place] (1.005-1.025) Urine Protein (NEG/TRACE) mg/dL Urine Glucose (UA) (NEGATIVE) mg/dL Urine Ketones (NEGATIVE) mg/dL Urine Occult Blood (NEGATIVE) Urine Nitrite (NEGATIVE) Urine Bilirubin (NEGATIVE) Urine Urobilinogen (0.2-1.0) EU/dL Ur Leukocyte Esterase (NEGATIVE) Urine RBC (0-2) #/HPF Urine WBC (NONE SEEN) #/HPF Ur Squamous Epith Cells (NONE/RARE) #/LPF Urine Crystals (None Seen) #/HPF Urine Bacteria (NONE SEEN) #/HPF Urine Casts (NONE SEEN) #/LPF Urine Mucus (NONE SEEN) Ur Culture Indicated? POC Glucose 153 H 81 (74-106) mg/dL Discharge Plan Discharge Chief Complaint: Weakness Clinical Impression: Hypoglycemia, Acute UTI (urinary tract infection) Patient Disposition: [facility] Discharge Location: [facility]
[2022-12-09] MEDS: DEXTROSE 50 %-WATER 25 GM/50 ML SYRINGE IV (03:35)
[2022-12-09 03:38] LABS: Basophils Percent Auto 0.4 % (0.2-2.0); Eosinophils Percent Auto 0.3 % (0.9-7.0); Hematocrit 41.9 % (36.0-48.0); Immature Granulocytes Abs Auto 0.03 10^3/uL (0.00-0.03); Immature Granulocytes Pct Auto 0.3 % (0.0-0.5); Lymphocytes Absolute Auto 1.9 10^3/uL (1.2-3.8); Lymphocytes Percent Auto 19.7 % (20.5-60.0); Mean Corpuscular Hemoglobin 32.3 pg (26.7-34.0); Mean Corpuscular Volume 104.2 fL (81.0-99.0); Mean Platelet Volume 8.6 fL (9.5-13.5); Monocytes Absolute Auto 1.1 10^3/uL (0.3-0.8); Monocytes Percent Auto 11.9 % (1.7-12.0); Neutrophils Absolute Auto 6.4 10^3/uL (1.4-6.5); Neutrophils Percent Auto 67.4 % (43.0-75.0); Platelet Count 436 10^3/uL (150-450); Red Blood Count 4.02 10^6/uL (4.20-5.40); Red Cell Distribution Width 14.8 % (11.0-15.0); White Blood Count 9.5 10^3/uL (4.0-11.0)
[2022-12-09 03:47] LABS: Alanine Aminotransferase 9 U/L (14-59); Albumin Globulin Ratio 0.8; Albumin Level 3.1 g/dL (3.4-5.0); Alkaline Phosphatase 81 U/L (46-116); Aspartate Amino Transferase 16 U/L (15-37); BUN Creatinine Ratio 17.7; Bilirubin Total 0.2 mg/dL (0.2-1.0); Calcium 8.2 mg/dL (8.5-10.1); Carbon Dioxide 29.3 mmol/L (21.0-32.0); Chloride 96 mmol/L (98-107); Estimated GFR (African America 48 (>=60); Estimated GFR (Non-African Ame 40 (>=60); Globulin 3.7 g/dL; Potassium 4.3 mmol/L (3.5-5.1); Sodium 130 mmol/L (136-145); Total Protein 6.8 g/dL (6.4-8.2)
[2022-12-09 03:49] LABS: Troponin I High Sensitivity 19.9 pg/mL (4.0-51.3)
--- NOTE | 2022-12-09 03:49 | PC.NURSE ---
Pt presents to ER via EMS for hypoglycemia Pt states her called EMS because she wasn't acting like herself Pt states she has been seen a few times for hypoglycemia but she is not a diabetic Pt states she was just recently discharged from [place] where she was seen by endocrinology A phonecall was made to [facility] to get records about her stay Pt is a poor historian On arrival her blood glucose was 31 Pt was given one amp of D50 and an orange juice Pt placed on industrial retrofit designer as well
[2022-12-09 03:57] LABS: Glucometer 166 mg/dL (74-106)
[2022-12-09 03:59] LABS: Glucometer 158 mg/dL (74-106)
[2022-12-09 04:09] LABS: Glucose 23 mg/dL (74-106)
[2022-12-09 04:47] LABS: Glucometer 73 mg/dL (74-106)
[2022-12-09 05:10] LABS: Bilirubin Urine NEGATIVE (NEGATIVE); Blood Urine NEGATIVE (NEGATIVE); Clarity Urine CLEAR (CLEAR); Color Urine LT. YELLOW (YELLOW); Glucose Urine UA 100 mg/dL (NEGATIVE); Ketones Urine NEGATIVE (NEGATIVE); Leukocyte Esterase Urine NEGATIVE (NEGATIVE); Nitrite Urine POSITIVE (NEGATIVE); Protein Urine NEGATIVE (NEG/TRACE); Specific Gravity Urine <=1.005 (1.005-1.025); Urobilinogen Urine 0.2 EU/dL (0.2-1.0); pH Urine 5.5 (5.0-9.0)
[2022-12-09 05:11] LABS: Urine Microscopic Indicated YES
[2022-12-09 05:20] LABS: Bacteria Urine LARGE #/HPF (NONE SEEN); Cast Seen? NONE SEEN #/LPF (NONE SEEN); Crystals Seen? None Seen #/HPF (None Seen); Mucus Urine NONE SEEN (NONE SEEN); RBC Urine 0-2 #/HPF (0-2); Squamous Epithelial Cell Urine FEW #/LPF (NONE/RARE); Urine Culture Indicated YES; WBC Urine NONE SEEN #/HPF (NONE SEEN)
[2022-12-09 05:53] LABS: Glucometer 358 mg/dL (74-106)
[2022-12-09 05:54] LABS: Glucometer 58 mg/dL (74-106)
[2022-12-09 06:43] LABS: Glucometer 153 mg/dL (74-106)
[2022-12-09 06:44] LABS: Glucometer 81 mg/dL (74-106)
[2022-12-09] MEDS: CEPHALEXIN 500 MG CAPSULE 1000 MG PO (07:06)
[2022-12-09 07:17] LABS: Glucose 54 mg/dL (74-106)
[2022-12-09] MEDS: DEXTROSE 10 % IN WATER 1,000 ML 120 ML IV (07:24)
[2022-12-09 08:50] LABS: Glucometer 217 mg/dL (74-106)
[2022-12-09 09:41] LABS: Glucometer 125 mg/dL (74-106)
[2022-12-09 10:28] LABS: Glucometer 103 mg/dL (74-106)
[2022-12-09] MEDS: DEXTROSE 5 %-0.45 % SOD CHLORD 1,000 ML 100 ML IV (11:08)
[2022-12-09] MEDS: SACUBITRIL/VALSARTAN 24 MG-26 MG TABLET 1 TAB PO (11:09)
[2022-12-09] MEDS: FUROSEMIDE 20 MG TABLET PO (11:09)
[2022-12-09] MEDS: HYDROCODONE/ACET 10-325 MG TABLET 1 TAB PO ×2 (11:12→17:13)
[2022-12-09] MEDS: CEFTRIAXONE 1,000 MG in 0.9 % SODIUM CHLORIDE 50 ML 100 MG IV (11:13)
[2022-12-09] MEDS: OMEPRAZOLE 40 MG CAPSULE.DR PO (11:13)
[2022-12-09] MEDS: POTASSIUM CHLORIDE 10 MEQ ER TABLET 20 MEQ PO (11:13)
--- NOTE | 2022-12-09 11:34 | CM.NOTE ---
Rounds made with Dr. Acharya, pt awaiting bed for transfer to [facility].
--- NOTE | 2022-12-09 11:38 | PM.HP ---
H&P: HPI History of Present Illness Chief complaint: Low BS Narrative: 72 y/o female to ER with low BS. Problems for several weeks and originally presented to ER 11/17. Not diabetic and no medication that would lower glucose. Initially glucose 58 and kept decreasing. Transferred to [facility] and admitted for several days. Reports a lot of tests but did not find reason for low BS. Over past week BS initially stable until yesterday. Started to have low BS and this am very lightheaded. Called EMS and glucose 30. Given D50 and to ER. Glucose 23 on labs and given food and D50. BS continued to decreased and started IV fluids with dextrose. UA showed UTI. Patient reports eating 3 meals a day and denies skipping meals or prolonged fasting. ER discussed with [facility] and accepted for transfer but no bed and admitted. Review of Systems ROS Constitutional Denies: fever, chills or fatigue Cardiovascular Reports: lightheadedness; Denies: chest pain, palpitations or edema Respiratory Reports: shortness of breath and cough; Denies: wheezing Gastrointestinal Denies: abdominal pain, nausea, vomiting or diarrhea Genitourinary Denies: painful urination [facility] Medical History (Updated 12/09/22 @ 11:44 by Tamara Mcgovern) Cataract ?H26.9 - Unspecified cataract (ICD-10) Deficient knowledge of caesarean delivery Hiatal hernia with GERD ?K44.9 - Diaphragmatic hernia without obstruction or gangrene (ICD-10) ?K21.9 - Gastro-esophageal reflux disease without esophagitis (ICD-10) Hypoglycemia ?E16.2 - Hypoglycemia, unspecified (ICD-10) Lumbar spondylosis ?M47.816 - Spondylosis without myelopathy or radiculopathy, lumbar region (ICD-10) Surgical History (Updated 12/09/22 @ 11:43 by Tamara Mcgovern) H/O: hysterectomy ?Z90.710 - Acquired absence of both cervix and uterus (ICD-10) Hx of appendectomy ?Z90.49 - Acquired absence of other specified parts of digestive tract (ICD-10) Hx of tonsillectomy ?Z90.89 - Acquired absence of other organs (ICD-10) Family History (Updated 12/09/22 @ 11:41 by Tamara Mcgovern) Mother Family history of COPD (chronic obstructive pulmonary disease) Mother No problems noted. Father Family history of cancer Grandfather Family history of stroke Aunt Family history of myocardial infarction Brother Family history of stroke Other Family history of hypertension Social History (Updated 12/09/22 @ 11:39 by Tamara Mcgovern) Within the past year, how often did you have a drink containing alcohol: never Score interpretation: A score less than 3 is consistent with normal alcohol consumption. Smoking status: Current every day smoker Previous occupational history: Retired [employer] Known occupational exposures/hazards: No Highest level of school completed/degree received: some college, no degree Do you want help with school or training: No Are you now , , , , never or living with a partner: In a typical week, how many times do you talk on the telephone with family, friends, or neighbors: 3 or more times per week How often do you get together with friends or relatives: 3 or more times per week How often do you attend christianity or restorationism services: 4 or more times per year Do you belong to any clubs or organizations such as christianity groups unions, [employer] or athletic groups, or school groups: no Total score: 3 Score interpretation: A score of greater than or equal to 2 indicates the lowest level of social isolation. Little interest or pleasure in doing things: not at all Feeling down, depressed, or hopeless: not at all Feel stressed/tense/nervous/anxious/difficulty sleeping: not at all Due to disability, difficulty making decisions: No Do you think of yourself as: straight/heterosexual Gender Identity: female Meds Home Medications and Allergies Home Medications Medication Instructions Recorded Confirmed Type albuterol sulfate 90 mcg/actuation 2 puff inhalation Q4H PRN 11/26/22 12/09/22 History aerosol inhaler bronchospasm atorvastatin 40 mg tablet 40 mg PO DAILY 11/26/22 12/09/22 History cyclobenzaprine 5 mg tablet 5 mg PO Q8H PRN muscle spasm 11/26/22 12/09/22 History furosemide 20 mg tablet 20 mg PO .daily mon, wed, fri 11/26/22 11/26/22 History furosemide 40 mg tablet 40 mg PO .COMPLEX 11/26/22 12/09/22 History hydrocodone 10 mg-acetaminophen 1 tab PO Q4H PRN pain 11/26/22 12/09/22 History 325 mg tablet omeprazole 40 mg capsule,delayed 40 mg PO BID 11/26/22 12/09/22 History release potassium chloride 20 mEq 20 meq PO .q am 11/26/22 12/09/22 History tablet,extended release(part/cryst) sacubitril 24 mg-valsartan 26 mg 1 tab PO BID 11/26/22 11/26/22 History tablet (Entresto) blood sugar diagnostic (Accu-Chek 12/09/22 12/09/22 History Guide test strips) blood-glucose meter (Accu-Chek 12/09/22 12/09/22 History Guide Glucose Meter) hydrocodone 5 mg-acetaminophen 325 tab 12/09/22 History mg tablet Allergies Allergy/AdvReac Type Severity Reaction Status Date / Time No Known Drug Allergies Allergy Verified 12/09/22 03:22 Exam Constitutional Vital Signs, click to edit/add: Last Vital Signs Temp 98.0 F 12/09/22 09:28 Pulse 85 12/09/22 10:01 Resp 16 12/09/22 09:28 BP 126/72 12/09/22 11:09 Pulse Ox 91 L 12/09/22 09:28 O2 Del Method Room Air 12/09/22 09:28 Documenting provider has reviewed patient's vital signs: yes Common normals: no apparent distress, oriented x3 and alert HENMT Common normals: normocephalic Eye Common normals: PERRL and EOMs intact bilaterally Respiratory Common normals: normal respiratory effort and clear to auscultation bilaterally Cardio Common normals: regular rate, regular rhythm, no gallops, no murmurs and no rub GI Common normals: Normal to inspection, nondistended, normoactive bowel sounds present and non-tender Extremity Common normals: no pedal edema Results Labs Labs: Short CBC 12/09/22 Range/Units 03:20 WBC 9.5 (4.0-11.0) 10^3/uL Hgb 13.0 (12.0-16.0) g/dL Hct 41.9 (36.0-48.0) % Plt Count 436 (150-450) 10^3/uL BMP 12/09/22 12/09/22 03:20 07:04 Sodium 130 L Potassium 4.3 Chloride 96 L Carbon Dioxide 29.3 BUN 23.0 H Creatinine 1.30 H Glucose 23 L* 54 L Calcium 8.2 L Liver Function 12/09/22 Range/Units 03:20 Total Bilirubin 0.2 (0.2-1.0) mg/dL AST 16 (15-37) U/L ALT 9 L (14-59) U/L Alkaline Phosphatase 81 (46-116) U/L Albumin 3.1 L (3.4-5.0) g/dL Urine 12/09/22 Range/Units 05:00 Urine Color Lt. yellow (YELLOW) Urine Clarity Clear (CLEAR) Urine pH 5.5 (5.0-9.0) Ur Specific [place] <=1.005 A (1.005-1.025) Urine Protein Negative (NEG/TRACE) mg/dL Urine Glucose (UA) 100 A (NEGATIVE) mg/dL Assessment and Plan Assessment and Plan (1) Hypoglycemia without diagnosis of diabetes mellitus: (2) Acute UTI (urinary tract infection): (3) COPD (chronic obstructive pulmonary disease): (4) Chronic HFrEF (heart failure with reduced ejection fraction): (5) CAD (coronary artery disease): Plan Continues to have low BS and unclear etiology. Accepted at [facility] but no bed available. Continue IV fluids with dextrose and monitor BS. Resume home medication. Will transfer once bed available at [facility].
--- NOTE | 2022-12-09 15:52 | PC.NURSE ---
Transfer with [facility]. Report given to Diana at [facility] at [phone]
--- NOTE | 2022-12-09 17:12 | PC.NURSE ---
Pneumo vaccine was not in formulary. not given
[2022-12-11 11:15] LABS: Insulin 61.5 uIU/mL (2.6-24.9)
== END 2022-12-09 18:35 | disposition short-term general hospital (02) ==
LOC: ER 08:37 → MS 09:14
PROVIDERS: Admitting Provider Internal Medicine; Emergency Provider Internal Medicine; PCP Family Medicine; Visit Provider Internal Medicine
DX: E16.2 Hypoglycemia, unspecified (principal); N39.0 Urinary tract infection, site not specified; J44.9 Chronic obstructive pulmonary disease, unspecified; I25.10 Atherosclerotic heart disease of native coronary artery without angina pectoris; I50.22 Chronic systolic (congestive) heart failure; K44.9 Diaphragmatic hernia without obstruction or gangrene; K21.9 Gastro-esophageal reflux disease without esophagitis; M47.816 Spondylosis without myelopathy or radiculopathy, lumbar region; Z90.710 Acquired absence of both cervix and uterus; Z90.49 Acquired absence of other specified parts of digestive tract; F17.210 Nicotine dependence, cigarettes, uncomplicated; Z79.899 Other long term (current) drug therapy; B96.20 Unspecified Escherichia coli [E. coli] as the cause of diseases classified elsewhere
CPT/HCPCS: 36415; 36416; 71045; 80053; 81001; 82947; 82948; 83525; 84484; 85025; 87086; 87186; 93005; 96365; 96366; 99285; G0378